=== PATIENT | male | born 1975 | race Caucasian/White ===

== ENCOUNTER 2021-12-05 21:30 | Emergency (ER) | payer BC ==
[~2021-12-05] VITALS: Ht 185.4 cm; Wt 96.5 kg
[2021-12-05 21:40] VITALS: BP 137/79
== END 2021-12-05 22:29 | disposition left against medical advice (07) ==
LOC: ER 21:30
DX: M79.89 Other specified soft tissue disorders (principal); Z88.0 Allergy status to penicillin
CPT/HCPCS: 99283